=== PATIENT | female | born 1935 | race Caucasian/White ===

== ENCOUNTER 2022-07-25 08:51 | Outpatient (CLI) | payer MEDICARE, OTHER | END 2022-07-25 08:52 | disposition home or self-care (01) | LOC: BICMAMMO 08:51 | PROVIDERS: ATTEND Family Medicine | DX: M81.0 Age-related osteoporosis without current pathological fracture (principal); M85.89 Other specified disorders of bone density and structure, multiple sites | CPT/HCPCS: 77080 ==

== ENCOUNTER 2022-09-04 08:47 | Outpatient (CLI) | payer MEDICARE, OTHER | END 2022-09-04 08:48 | disposition home or self-care (01) | LOC: MRI 08:47 | PROVIDERS: ATTEND Family Medicine | DX: G95.19 Other vascular myelopathies (principal); M43.17 Spondylolisthesis, lumbosacral region; M51.36 Other intervertebral disc degeneration, lumbar region; M51.26 Other intervertebral disc displacement, lumbar region | CPT/HCPCS: 72148 ==

== ENCOUNTER 2023-12-03 09:21 | Outpatient (CLI) | payer MEDICARE, OTHER | END 2023-12-03 09:22 | disposition home or self-care (01) | LOC: BICRAD 09:21 | PROVIDERS: ATTEND Family Medicine | DX: M47.22 Other spondylosis with radiculopathy, cervical region (principal); M50.123 Cervical disc disorder at C6-C7 level with radiculopathy | CPT/HCPCS: 72040 ==

== ENCOUNTER 2023-12-04 13:10 | Outpatient (CLI) | payer MEDICARE, OTHER | END 2023-12-04 13:11 | disposition home or self-care (01) | LOC: BICMRI 13:10 | PROVIDERS: ATTEND Family Medicine | DX: M50.123 Cervical disc disorder at C6-C7 level with radiculopathy (principal) | CPT/HCPCS: 72141 ==

== ENCOUNTER 2024-09-30 09:26 | Outpatient (CLI) | payer MEDICARE, OTHER | END 2024-09-30 09:27 | disposition home or self-care (01) | LOC: BICMAMMO 09:26 | PROVIDERS: ATTEND Family Medicine | DX: Z12.31 Encounter for screening mammogram for malignant neoplasm of breast (principal); Z91.89 Other specified personal risk factors, not elsewhere classified | CPT/HCPCS: 77063; 77067 ==

== ENCOUNTER 2024-11-26 14:21 | Outpatient (CLI) | payer MEDICARE, OTHER | END 2024-11-26 14:22 | disposition home or self-care (01) | LOC: BICMAMMO 14:21 | PROVIDERS: ATTEND Family Medicine | DX: M48.062 Spinal stenosis, lumbar region with neurogenic claudication (principal); Z78.0 Asymptomatic menopausal state; M47.816 Spondylosis without myelopathy or radiculopathy, lumbar region; M47.817 Spondylosis without myelopathy or radiculopathy, lumbosacral region | CPT/HCPCS: 72148; 77080 ==

== ENCOUNTER 2025-06-06 09:53 | Outpatient (CLI) | payer MEDICARE, OTHER | END 2025-06-06 09:54 | disposition home or self-care (01) | LOC: BICRAD 09:53 | PROVIDERS: ATTEND Family Medicine | DX: M25.551 Pain in right hip (principal); M25.552 Pain in left hip; M65.851 Other synovitis and tenosynovitis, right thigh; M16.0 Bilateral primary osteoarthritis of hip ==